=== PATIENT | female | born 1990 ===

== ENCOUNTER 2017-01-05 19:51 | Inpatient (IN) | payer OTHER ==
[2017-01-05 20:57] VITALS: BMI 40.4
[2017-01-05 21:29] LABS: CHLORIDE 105 mmol/L (98-107); POTASSIUM 3.9 mmol/L (3.6-5.2); RBC URINE 3 /hpf (0-3); SODIUM 137 mmol/L (132-148); TRANSITIONAL EPITHIAL < 1 /hpf (0-3); URINE BACTERIA RARE (<OCC); URINE BILIRUBIN NEGATIVE (NEGATIVE); URINE BLOOD NEGATIVE (NEGATIVE); URINE COLOR Yellow (YELLOW); URINE GLUCOSE (UA) NORMAL (Normal); URINE KETONE NEGATIVE (NEGATIVE); URINE PROTEIN NEGATIVE (NEGATIVE); URINE UROBILINOGEN NORMAL mg/dL (0.2-1.0); WBC URINE 6 /hpf (0-5)
[2017-01-05 21:30] LABS: URINE LEUKOCYTE ESTERASE 1+ Leu/uL (Negative)
[2017-01-05 21:31] LABS: AST/SGOT 23 U/L (14-36); BILIRUBIN,TOTAL 0.3 mg/dL (0.2-1.3); CARBON DIOXIDE 22 mmol/L (22-30); GFR AFRICAN-AMERICAN > 60
[2017-01-05 21:32] LABS: ALB/GLOB RATIO 1.1 (1.0-2.1); ALKALINE PHOSPHATASE 168 U/L (38-126); ALT/SGPT 39 U/L (9-52); BLOOD UREA NITROGEN 10 mg/dL (7-17); CALCIUM 9.1 mg/dl (8.6-10.4); GLUCOSE,RANDOM 95 mg/dL (65-105); TOTAL PROTEIN 6.4 g/dL (6.3-8.3)
--- NOTE | 2017-01-05 21:41 | OBHP ---
Datetime: 01/05/2017 21:34 IP Adm Impression: Postterm, intrauterine IP Chief Complaint Other: abdominal pain IP Adm Impression Other: early labor IP Admit Plan: Admit to unit Admit Comment, IP Provider: chief complaint-abdominal pain, decreased movement HPI 26 y/o at 40.1 wga with c/o abdominal pain for 2 days and decreased movement course - care with dr sandy [facility] denies PSH [id number] OBGYN HX ; NVDX1; TOPX5 Social hx denies tobacco,alcohol or illicit drug use Exam see exam section A/P 26 y/o at 40.1 wga with c/o abdominal pain and decreased movement.Obesity. Early labor -admit -see orders Pelvic Type - PN: Adequate Extremities - PN: Normal Abdomen - PN: Normal Back - PN: Normal Lungs - PN: Normal Heart - PN: Normal Neurologic - PN: Normal General - PN: Normal Contraction Comments Provider: irregular Gestation - Est Wks by US: 40.1 IP Hx Assessment: The History has been Reviewed and is Current EGA AdmitDate IP: 40.1 Vital Signs Provider: Reviewed; Within Normal Limits IP Chief Complaint: Decreased movement FHR Category Provider Fetus A: Category I Genitourinary Exam: Normal DTRs - PN: Normal
[2017-01-05] MEDS ORDERED: Nalbuphine 20 mg/ml Inj (1 ml) IVP PRN (21:45)
[2017-01-05 21:50] LABS: BASO % 0.4 % (0.0-2.0); EOS # 0.1 K/uL (0.0-0.7); HEMATOCRIT 34.9 % (34.0-47.0); LYMPH # 2.3 K/uL (1.0-4.3); LYMPH % 21.4 % (20.0-40.0); MEAN CELL VOLUME 74.1 fL (81.0-99.0); MEAN CORPUSCULAR HEMOGLOBIN 24.1 pg (27.0-31.0); MEAN CORPUSCULAR HGB CONC 32.6 g/dL (33.0-37.0); MEAN PLATELET VOLUME 8.9 fL (7.2-11.7); MONO # 0.6 K/uL (0.0-0.8); MONO % 5.9 % (0.0-10.0); RED CELL DISTRIBUTION WIDTH 16.1 % (11.5-14.5); WHITE BLOOD COUNT 10.9 K/uL (4.8-10.8)
[2017-01-05] MEDS ORDERED: Oxytocin 30 UNIT 30 UNITS/500 ML BAG IV ONE (22:30)
[2017-01-05] MEDS ORDERED: Oxytocin 30 UNIT 30 UNITS/500 ML BAG IV PRN (22:30)
[2017-01-06] MEDS ORDERED: Sodium Citrate/Citric Acid 15 ml Sol ONE (13:50)
[2017-01-06] MEDS ORDERED: Sodium Citrate/Citric Acid 15 ml Sol PO ONE (13:50)
[2017-01-06] MEDS ORDERED: cefOXitin IV 2 gm in Dextrose 2 GM/50 ML BAG IVPB ONE (13:50)
[2017-01-06] MEDS ORDERED: Oxytocin 20 units in LR 2,000 ML IV ONE (13:53)
[2017-01-06] MEDS ORDERED: ceFAZolin IV 2 gm in Dextrose 2 GM/100 ML BAG IVPB ONE (14:00)
[2017-01-06] MEDS ORDERED: Morphine 1 mg/ml preservative-free Inj(Duramorph) ONE (14:41)
[2017-01-06] MEDS ORDERED: Oxycodone/Acetaminophen 5/325 mg Tab PO PRN (17:08)
[2017-01-06] MEDS: Oxycodone/Acetaminophen 5/325 mg Tab PO PRN (20:41)
[2017-01-06] MEDS: Lactated Ringer's 1,000 ML IV SCH (20:45)
[2017-01-06] MEDS: Simethicone 80 mg Chewtab PO SCH (21:14)
[2017-01-06] MEDS ORDERED: Oxycodone/Acetaminophen 5/325 mg Tab PO ONE (22:15)
[2017-01-07] MEDS: Oxycodone/Acetaminophen 5/325 mg Tab PO PRN ×3 (05:32→14:19)
[2017-01-07] MEDS: Lactated Ringer's 1,000 ML IV SCH (05:33)
[2017-01-07 08:13] LABS: BASO % 0.4 % (0.0-2.0); EOS % 0.3 % (0.0-4.0); HEMATOCRIT 29.8 % (34.0-47.0); LYMPH # 1.3 K/uL (1.0-4.3); LYMPH % 15.5 % (20.0-40.0); MEAN CELL VOLUME 74.2 fL (81.0-99.0); MEAN CORPUSCULAR HEMOGLOBIN 24.8 pg (27.0-31.0); MEAN CORPUSCULAR HGB CONC 33.5 g/dL (33.0-37.0); MEAN PLATELET VOLUME 8.7 fL (7.2-11.7); MONO # 0.4 K/uL (0.0-0.8); NRBC % 0.1 % (0.0-2.0); RED CELL DISTRIBUTION WIDTH 16.1 % (11.5-14.5); WHITE BLOOD COUNT 8.6 K/uL (4.8-10.8)
[2017-01-07] MEDS: Simethicone 80 mg Chewtab PO SCH ×4 (09:31→22:09)
[2017-01-07] MEDS: Prenatal Multivit/Folic Acid/Iron Tab PO SCH (09:32)
[2017-01-08] MEDS: Simethicone 80 mg Chewtab PO SCH ×4 (09:00→21:45)
[2017-01-08] MEDS: Prenatal Multivit/Folic Acid/Iron Tab PO SCH (09:01)
--- NOTE | 2017-01-08 15:36 | OBPPN ---
Datetime: 01/08/2017 15:35 PP Pain Prov: Within normal limits PP Breasts Prov: Normal PP Heart Prov: Normal PP Lungs Prov: Normal PP Abdomen/Uterus Prov: Normal PP Lochia Prov: Normal PP Vulva/Perineum Prov: Normal PP CVA Tenderness Prov: Normal PP Extremities Prov: Normal PP C/S Incision Prov: Normal PP Progress Prov: Normal PP Impression Prov: Normal progression PP Plan Prov: Continue present management IP PP Procedures: Tubal Ligation; Rhogam Datetime: 01/07/2017 15:32 PP Progress Note Prov: POD #1 No C/O VS Stable Abdomen Soft Wound Clean Datetime: 01/07/2017 08:47 PP Nausea Prov: Denies PP Flatus Prov: No PP BM Prov: No Vital Signs Provider PP: Reviewed
--- NOTE | 2017-01-08 15:39 | OBPPN ---
Datetime: 01/08/2017 15:35 PP Progress Note Prov: POD #2 No C/O Abdomen Soft Wound Clean P: Home in AM if stable
--- NOTE | 2017-01-08 15:42 | OBDCSUM ---
Datetime: 01/08/2017 15:38 Discharged to, Provider: Home Follow up at, Provider: Dr. Xavier Disch Instr Activity: May be up to bathroom Disch Instr Diet: Regular Discharge Instructions, Provider: Routine instructions given Discharge Diagnosis, Provider: Term Delivered Discharge Time: 01/09/2017 10:38 Follow up in weeks, Provider: 1 week Disch Activity Restrictions: No exercising; No lifting; No driving; Minimize walking; Minimize stair -climbing; No sexual activity; Nothing in vagina - [place], tampons, douche Discharge Comment, Provider: Home in AM if stable Discharge Diagnosis Prov Other: CPD Multiparity Contraception after Delivery: Tubal Ligation
[2017-01-08] MEDS: Oxycodone/Acetaminophen 5/325 mg Tab PO PRN (21:43)
[2017-01-09] MEDS: Prenatal Multivit/Folic Acid/Iron Tab PO SCH (09:27)
[2017-01-09] MEDS: Simethicone 80 mg Chewtab PO SCH (09:28)
[2017-01-09 17:44] VITALS: BP 131/83; PULSE 94; RESP 18; TEMP 98.8; O2SAT 99
--- NOTE | 2017-01-16 07:50 | OP ---
PROCEDURE DATE: 01/06/2017 NATURE OF OPERATION: Primary section with bilateral tubal ligation. ATTENDING SURGEON: Melvin Xavier MD CUT TOBACCO BULKER: David Gabriel MD PHOTOGRAPH FINISHER: TYPE OF ANESTHESIA: Spinal. PREOPERATIVE DIAGNOSES: Term 40 to 41 weeks . Cephalopelvic disproportion. Live male 6 pounds 11 ounces. Apgars 9 and 9, vertex and multiparity. DESCRIPTION OF PROCEDURE: The patient was placed in supine position after spinal anesthesia. The abdomen was prepped and draped for Pfannenstiel incision. A Pfannenstiel incision was made between the symphysis pubis and umbilicus and was carried down to rectus fascia. The fascia was cleaned and incised the length of the incision. The recti were retracted laterally. The transversalis fascia identified and mobilized superiorly. The peritoneum was then incised the length of the incision. The vesicouterine fold of the visceral peritoneum was identified, incised transversely between the round ligaments. The bladder flap was developed, mobilized inferiorly by blunt dissection. A transverse incision was made into the anterior wall of the lower uterine segment and extended laterally toward the round ligament. Membranes were incised and the amniotic fluid is clear. The patient was delivered from the OT position of a living male infant in good condition at exactly 03:19 p.m. on 01/06/2017, Apgars 9 and 9 was floating, the placenta was on the posterior wall near the fundus. Membrane and placenta were completely removed manually. The uterus was closed in two layers with continuous suture of chromic #1 gut, first layer including myometrium, second layer imbricating the myometrium. The bladder flap was reattached with continuous suture of chromic #2-0 catgut on an atraumatic needle. The uterus was well contracted. The tubes and ovaries were normal. After section was completed, bilateral tubal ligation was performed. The right fallopian tube was held with a Aashish forceps at the avascular area of mesosalpinx transfixed with 0 chromic passed through the mesosalpinx and the tube was tied on both side followed by double ligation portions of the tube above the ligature was cut, old bleeding point was checked and tied, the left fallopian tube was similarly transfixed, ligated and cut using the same suture. At this point, hemostasis was satisfactory and lap and sponge count was reported as correct. Abdomen was closed in layers. Peritoneum continue suture of chromic #0 catgut on an atraumatic needle, fascia running interlocking sutures of 0 Vicryl. Subcutaneous tissue was closed with #2-0 plain catgut and skin was closed with the sahara and the patient tolerated the procedure well and sent to the recovery room in satisfactory condition. ESTIMATED BLOOD LOSS: 500 mL. Melvin Xavier MD
== END 2017-01-09 12:25 | disposition home or self-care (01) | DRG 766 ==
LOC: C.EROB 19:51 → C.4D 20:30 → C.4M 01-06 19:26
PROVIDERS: ADMIT Obstetrics & Gynecology Gynecology; ATTEND Obstetrics & Gynecology Gynecology
PROC: 10D00Z1 Extraction of Products of Conception, Low, Open Approach (ICD-10-PCS; principal; 2017-01-06)
PROC: 0UB70ZZ Excision of Bilateral Fallopian Tubes, Open Approach (ICD-10-PCS; 2017-01-06)
DX: O33.9 Maternal care for disproportion, unspecified (principal); O99.214 Obesity complicating childbirth; O48.0 Post-term pregnancy; O36.8130 Decreased fetal movements, third trimester, not applicable or unspecified; Z37.0 Single live birth; Z3A.40 40 weeks gestation of pregnancy; Z30.2 Encounter for sterilization